=== PATIENT | female | born 1965 | race Caucasian/White ===

== ENCOUNTER → 2019-01-05 | Outpatient (CLI) | payer OTHER ==
[~2019-01-05] MED LIST: BIRTH CONTROL PO; KEPPRA 500 MG500 MG PO
== END ==
LOC: M.RAD 14:31
DX: Z12.31 Encounter for screening mammogram for malignant neoplasm of breast (principal)

== ENCOUNTER → 2020-01-29 | Outpatient (CLI) | payer OTHER | LOC: M.RAD 14:50 | PROVIDERS: ATTEND Nurse Practitioner Women's Health | DX: Z12.31 Encounter for screening mammogram for malignant neoplasm of breast (principal); N63.24 Unspecified lump in the left breast, lower inner quadrant ==

== ENCOUNTER → 2020-02-01 | Outpatient (CLI) | payer OTHER ==
[~2020-02-01] MED LIST changes: +ALLEGRA ALLERG180 MG PO; +EZETIMIBE10 MG PO; +PROAIR HFA8.5 GM INH; +ROSUVASTATIN CA40 MG PO; +TRAMADOL 50 MG50 MG PO; +VITAMIN D21250 MC1 PO
--- NOTE | 2020-02-12 10:07 | PATH ---
[address] [address] PATHOLOGY RPT PROCEDURE Name: PRICE LOERA Room: [facility]#: [id number] Admission: 02/01/20 Date of : 69 Discharge: Report #: [id number] Path Case #: [id number] [facility] Accession Number: [id number] . 01 Material submitted: . PART A: breast - LEFT BREAST BIOPSY 7:00 8CMFN. Modifiers: left, 7:00 PART B: breast - LEFT BREAST BIOPSY MASS 5:00 1CMFN. Modifiers: left, 5:00 PART C: breast - LEFT BREAST MASS 7:00 4CMFN. Modifiers: left, 7:00 . 01 Clinical history: . A. 1.74 X 1.38 X 1.03 B. 1.51 X 1.66 X 1.42 C. 1.56 X 1.67 X 1.03 MAMMOTOMOE BX/MASS . 02 Diagnosis: A. Left breast, 7:00, 8 cm from nipple, image guided core biopsy: - INFILTRATING DUCTAL ADENOCARCINOMA, LOW-GRADE, SPANNING AT LEAST 10 MM. - FOCAL DUCTAL CARCINOMA IN SITU (DCIS), NUCLEAR GRADE II, SOLID AND CRIBRIFORM TYPES. SEE COMMENT. . B. Left breast mass, 5:00, 1 cm from nipple, image guided core biopsies: - Benign breast tissue with usual ductal epithelial hyperplasia and apocrine change, negative for atypia. See comment. . C. Left breast mass, 7:00, 4 cm from nipple: - INFILTRATING DUCTAL ADENOCARCINOMA, LOW-GRADE, SPANNING AT LEAST 9 MM. - DCIS, NUCLEAR GRADE II, CRIBRIFORM TYPE WITH FOCAL NECROSIS AND CALCIFICATIONS. SEE COMMENT. . Surgical Pathology Cancer Case Summary . Protocol posting date: June 2019 . INVASIVE CARCINOMA OF THE BREAST: Biopsy . Procedure ___ Other: Image guided core biopsies . Specimen Laterality ___ Left . Tumor Site ___ Clock position: 7 o'clock ___ Distance from nipple: 8 cm . Tumor Size ___ Greatest dimension of largest invasive focus >1 mm: at least 10 [place] [address] PATHOLOGY RPT PROCEDURE Name: PRICE LOERA Room: [facility]#: [id number] Admission: 02/01/20 Date of : 69 Discharge: Report #: [id number] Path Case #: [id number] Histologic Type ___ Invasive carcinoma of no special type (ductal) . Histologic Grade ([place] Histologic Score) . Glandular (Acinar)/Tubular Differentiation ___ Score 1 (>75% of tumor area forming glandular/tubular structures) . Nuclear Pleomorphism ___ Score 2 (cells larger than normal with open vesicular nuclei, visible nucleoli, and moderate variability in both size and shape) . Mitotic Rate ___ Score 1 . Overall Grade ___ Grade 1 (scores of 3, 4, or 5) . Ductal Carcinoma In Situ (DCIS) ___ Present . Architectural Patterns ___ Cribriform ___ Solid . Nuclear Grade ___ Grade II (intermediate) . Necrosis ___ Not identified . Lymphovascular Invasion ___ Not identified . Microcalcifications ___ Not identified . Ancillary Studies . Biomarker Studies ___ Pending on A1. . Surgical Pathology Cancer Case Summary . Protocol posting date: June 2019 . INVASIVE CARCINOMA OF THE BREAST: [place] [address] PATHOLOGY RPT PROCEDURE Name: PRICE LOERA Room: [facility]#: [id number] Admission: 02/01/20 Date of : 69 Discharge: Report #: [id number] Path Case #: [id number] ___ Other : Image guided core biopsies . Specimen Laterality ___ Left ___ Not specified . Tumor Site ___ Clock position: 7 o'clock ___ Distance from nipple: 4 cm . Tumor Size ___ Greatest dimension of largest invasive focus >1 mm: at least 9 mm . Histologic Type ___ Invasive carcinoma of no special type (ductal) . Histologic Grade ([place] Histologic Score) . Glandular (Acinar)/Tubular Differentiation ___ Score 2 (10% to 75% of tumor area forming glandular/tubular structures) . Nuclear Pleomorphism ___ Score 2 (cells larger than normal with open vesicular nuclei, visible nucleoli, and moderate variability in both size and shape) . Mitotic Rate ___ Score 1 . Overall Grade ___ Grade 1 (scores of 3, 4, or 5) . Ductal Carcinoma In Situ (DCIS) ___ Present . Architectural Patterns ___ Cribriform . Nuclear Grade ___ Grade II (intermediate) . Necrosis ___ Present, focal (small foci or single cell necrosis) . Lymphovascular Invasion ___ Not identified . Microcalcifications ___ [place] [address] PATHOLOGY RPT PROCEDURE Name: PRICE LOERA Room: [facility] Elaina#: [id number] Admission: 02/01/20 Date of : 69 Discharge: Report #: [id number] Path Case #: [id number] . Ancillary Studies Biomarker Studies ___ Pending on C1 . (KRZYSZTOF:pit 02/04/2020) [facility] 02/04/2020 1205 Local . 02 Comment: In specimen A, approximately 80% of the submitted tissues are involved by invasive tumor and in specimen C, approximately 95% is involved. Breast tumor profile studies are pending on A1 and C1 and will be the subject of an addendum report. Specimens A, B, and C reviewed with Dr. José Roblero who agrees with the diagnoses. Olinda (acting [facility] Breast Navigator) notified at approximately 1430 on 02/04/2020. (KRZYSZTOF:ángela 02/04/2020) . 02 Addendum: . Special studies report received from [facility], [address] [place] [address], [address], [place], [address], on case [id number], labeled with their number [id number], dated 02/06/2020. . Breast/Prognostic Marker Analysis . Specimen Site: Lt Breast,7:00, 8 cm FN, Breast Carcinoma (Biopsy) Specimen ID #: [id number] . ER (Estrogen Receptor) Present/Positive Percent: 95.00% Analysis: Manual Comments: Staining intensity: Moderate to strong . CA (Progesterone Receptor) Present/Positive Percent: 10.00% Analysis: Manual Comments: Staining intensity: Weak to moderate . HER2 Equivocal Score: 2+ Analysis: Manual Comments: Additional studies: Reflex HER2 by FISH will be reported separately. . Ki-67 [place] [address] PATHOLOGY RPT PROCEDURE Name: PRICE LOERA Room: [facility] Elaina#: [id number] Admission: 02/01/20 Date of : 69 Discharge: Report #: [id number] Path Case #: [id number] Percent: 2.00% Analysis: Manual . . Specimen Site: Lt Breast Mass,7:00, 4 cm FN, Breast Carcinoma (Biopsy) Specimen ID #: [id number] . ER (Estrogen Receptor) Present/Positive Percent: 90.00% Analysis: Manual Comments: Staining intensity: Moderate to strong . CA (Progesterone Receptor) Present/Positive Percent: 10.00% Analysis: Manual Comments: Staining intensity: Moderate to strong . HER2 Not Over-Expressed Score: 1+ Analysis: Manual . Ki-67 Low Proliferation Percent: 10.00% Analysis: Manual . Time to Fixation (Cold Ischemic Time): A) Less than 1 minute C) Immediate Duration of Fixation: A) 12 hours, 36 minute C)12 hours, 23 minutes Type of Fixative: 10% Neutral Buffered Formalin . Comments: ER/PgR testing at [facility]. is performed in compliance with the ASCO/CAP Clinical Practice Guidelines. If the result for ER is less than 1% it is reported as Negative; if the ER result is 1-10% it is reported as Low Positive; if the ER result is greater than 10% it is reported as Positive. If the result for PgR is less than 1% it is reported as Negative; if the PgR result is equal to or greater than 1%, it is reported as Positive. . REFERENCE: Praveena KH, Ewa LOERAH, Farhan M, et al. Estrogen and progesterone receptor testing in breast cancer. ASCO/CAP guideline update. Arch Pathol Lab Med. 2020; 144:545-563. . Whole slide image capture is performed using Interface21 (NUOFFER) platform. Image analysis, if ordered, is performed using [place] [address] PATHOLOGY RPT PROCEDURE Name: PRICE LOERA [id number] Ad[facility]: 02/01/20 Date of : 69 Discharge: Report #: [id number] Path Case #: [id number] . at [facility]. Kia Moya M.D. Pathologist . . Methodology The HER2 Receptor protein expression is analyzed using the [place] HER2 rabbit monoclonal antibody (clone [id number]). This assay is used for diagnostic determination of the HER2 protein over-expression in paraffin embedded, formalin fixed breast cancer tissue on the [place] Benchmark. The specimen is processed using a secondary antibody-HRP conjugate detection system. The membrane staining of the tumor is determined either by manual score or image analysis. This antibody is intended for in vitro diagnostic use. The score is reported as 0, 1+, 2+, or 3+. This test is used for clinical purposes. . A rabbit monoclonal antibody (clone SP1) that recognized the Estrogen Receptor is used to perform immunohistochemistry on routinely fixed (formalin) paraffin embedded tissue on the [place] Benchmark. The specimen is processed using a secondary antibody-HRP conjugate detection system. The percentage of stained tumor nuclei is determined either manually or by image analysis. This test is intended for in vitro diagnostic use. This test is used for clinical purposes. . A rabbit monoclonal antibody (clone 1E2) that recognized the Progesterone Receptor is used to perform immunohistochemistry on routinely fixed (formalin) paraffin embedded tissue on the [place] Benchmark. The specimen is processed using a secondary antibody-HRP conjugate detection system. The percentage of stained tumor nuclei is determined either manually or by image analysis. This test is intended for in vitro diagnostic use. This test is used for clinical purposes. . A rabbit monoclonal antibody (clone 30-9) that recognized Ki67 is used to perform immunohistochemistry on routinely fixed (formalin) paraffin embedded tissue on the [place] Benchmark. The specimen is processed using a secondary antibody-HRP conjugate detection system. The percentage of stained tumor nuclei is determined either manually or by image analysis. This test is intended for in vitro diagnostic use. This test is used for clinical purposes. . Intended Use: This antibody is intended for in vitro diagnostic (IVD) use. HER2 (4B5) is a rabbit monoclonal antibody intended for the semi-quantitative detection of HER2 antigen in sections of formalin-fixed, paraffin embedded normal and neoplastic tissue. . This antibody is intended for in vitro diagnostic (IV[place]) [place] [address] PATHOLOGY RPT PROCEDURE Name: PRICE LOERA Room: [facility]#: [id number] Admission: 02/01/20 Date of : 69 Discharge: Report #: [id number] Path Case #: [id number] Receptor (ER) (SP1) is a rabbit monoclonal antibody (IgG) that is intended for the qualitative detection of estrogen receptor (ER) antigen in sections of formalin-fixed, paraffin-embedded tissue. ER is a rabbit monoclonal antibody that recognizes human estrogen receptor alpha. . This antibody is intended for in vitro diagnostic (IVD) use. Progesterone Receptor (CA) (1E2) is a rabbit monoclonal antibody (IgG) that is intended for the qualitative detection of progesterone receptor (CA) antigen in sections of formalin fixed, paraffin embedded tissue. CA is a rabbit monoclonal antibody that recognizes the A and B forms of the human progesterone receptor. . This antibody is intended for in vitro diagnostic (IVD) use. Ki-67 (30-9) is a rabbit monoclonal antibody (IgG) directed against C-terminal portion of Ki-67 antigen. Staining for Ki-67 can be used to aid in assessing the proliferative activity of normal and neoplastic tissue. Ki-67 is a nuclear protein expressed in proliferating cells. During the cell cycle, the Ki-67 antigen is present in the G1, S, G2 and M phase but is absent in the G0 (quiescent phase). . . Disclaimer: This Test was performed by [employer]. at [address] [address], [place], [address]. . [facility] is a business unit of [employer]. a wholly-owned subsidiary of [employer]. . This assay has not been validated on decalcified tissues. Results should be interpreted with caution if this specimen was decalcified given the likelihood of false negativity on decalcified specimens. . Any image(s) that accompany this report is/are a cash application representative image(s) only and should not be used to render a diagnosis. . This interpretation is contingent on the specimen and the clinical information received. . For any special tests/stains performed, known positive cells or tissues are tested with each marker and examined to ensure positivity. Positive and negative internal controls, if present, react appropriately. . This analysis is an adjunct to the evaluation of the referring physician and does not represent a final diagnosis. . The immunohistochemistry tests performed at [facility]. were validated on tissue fixed in 10% neutral buffered formalin. The performance characteristics of the tests [place] [address] PATHOLOGY RPT PROCEDURE Name: PRICE LOERA Room: [facility] MARISSA Delaney#: [id number] Admission: 02/01/20 Date of : 69 Discharge: Report #: [id number] Path Case #: [id number] processed in other fixatives is not known. . HER2 testing at [facility] is performed in compliance with the 2018 updated ASCO/CAP Clinical Practice Guideline Focused Update. If the result is EQUIVOCAL (2+), it must be confirmed by an alternative assay such as FISH or Dual ROSENDO. REF: Mone GARCIA, MALU Mcneil et al: Human Epidermal Growth Factor Receptor 2 Testing in Breast Cancer: ASCO/CAP Clinical Practice Guideline Focused Update. J Clin Oncol 36:0124-3175, 2018. . HER2 and ER/CA ASCO/CAP guidelines require fixation in neutral buffered formalin for a minimum of 6 and a maximum of 72 hours. Fixation times less than 6 hours may not adequately preserve cell proteins. Fixation times longer than 72 hours may cause excess cross-linking of proteins reducing the antigen available for staining. Either scenario can cause reduced staining; hence false negative results are possible and should be considered for these situations if the HER2 IHC score is less than 3+ or ER or CA is negative (no staining or <1% positive). It is recommended that specimens fixed longer than 72 hours with HER2 IHC scores less than 3+ be confirmed by HER2 FISH or Dual ROSENDO. The time from biopsy/excision to fixation in formalin (cold ischemic time) must be less than 1 hour. Time to fixation (cold ischemic time) greater than 1 hour should be interpreted with caution. HER2 testing, mainly HER2 by FISH, is particularly vulnerable since excessive cold ischemic time results in preferential loss of HER2 probe signals that may lead to false negative results. . SCORE STAINING PATTERN IN TUMOR CELLS INTERPRETATION RESULTS 0 No staining observed or incomplete, faint membrane staining in less than or equal to 10% of tumor cells. Negative 1+ Incomplete, faint membrane staining in greater than 10% of tumor cells. Negative 2+ Weak to moderate complete membrane staining observed in greater than 10% of tumor cells. Equivocal* *Must be confirmed by alternative assay (IHC/FISH/Dual ROSENDO) 3+ Intense, complete membrane staining in greater than 10% of tumor cells. Positive . A complete copy of the report is on file. . Professional and Technical services performed by [employer]. at [facility] [address], [address], [place] [address]. [place] [address] PATHOLOGY RPT PROCEDURE Name: PRICE LOERA Room: [facility]#: [id number] Admission: 02/01/20 Date of : 69 Discharge: Report #: [id number] Path Case #: [id number] (KRZYSZTOF:[facility] 02/07/2020) [facility]/02/07/2020 Addendum Electronically Signed by Jakob Serna MD, Pathologist Addendum #2: Special studies report received from [facility], [address] [place] [address], [address], [place], [address], on case [id number], labeled with their number [id number], dated 02/11/2020. . Fluorescence in situ Hybridization (FISH) Report HER2/LINDA-17 Dual-Probe (Breast Cancer) . Result: Negative/Not Amplified HER2/LINDA-17 Ratio: 1.7 Avg number of HER2 Signals/Nucleus: 3.4 . Indication for Study: Breast Carcinoma . Specimen Site/Type: Left Breast, 7:00, 8 cm FN (Biopsy) . Fixative: 10% Neutral Buffered Formalin . Time to Fixation: Less than 1 minute . Duration of Fixation: 12 hours and 36 minutes . HER2 FISH ANALYSIS Number of tumor cells counted: 20 Number of observers: 2 Avg number of HER2 Signals/Nucleus: 3.4 Avg number of LINDA-17 Signals/Nucleus: 2.0 Ratio of average HER2/LINDA-17: 1.7 . See report [id number] for further information. . Reviewed and electronically signed by Kia Moya M.D. on 02/11/2020 at [facility]. Kia Moya M.D. . . Methodology: A FDA approved DAKO HER2 IQFISH pharmDX (HER2/LINDA-17 DNA Probe Kit) was used for the assessment of HER2 gene amplification status. The FISH analysis was performed on areas of invasive tumor cells that were defined by a pathologist from a corresponding H and E slide. A minimum of twenty invasive tumor nuclei were analyzed by two technologists. For each nucleus, the number of HER2 signals and the number of centromere 17 (LINDA-17) signals were recorded. Enumeration results are reported as a ratio of the total HER2 hybridization signals to LINDA-17 hybridization signals. An average number of HER2 signals/nucleus and an average number [facility] [address] [place] [address] PATHOLOGY RPT PROCEDURE Name: PRICE LOERA Room: [facility]#: [id number] Admission: 02/01/20 Date of : 69 Discharge: Report #: [id number] Path Case #: [id number] of centromere 17 signals/nucleus were also recorded. If the HER2/LINDA-17 ratio is >/= 2, the HER2 gene status is Amplified/Positive. If the HER2/LINDA-17 ratio is <2, the HER2 gene status is Non-Amplified/Negative. If results are at or near the cut off (1.8-2.2), an additional 20 nuclei are counted and the ratio for 40 nuclei is recalculated. A HER2/LINDA-17 ratio of 1.8-2.2 should be interpreted with caution. The HER2 FISH results are reported using the 2018 ASCO/CAP guidelines. . ASCO/CAP 2018 SCORING CRITERIA GROUP 1 HER2/LINDA-17 ratio >/= 2.0 HER2 signals/cell >/= 4.0 FISH Positive . GROUP 2 HER2/LINDA-17 ratio >/= 2.0 HER2 signals/cell < 4.0 Additional work-up required (see comments) . GROUP 3 HER2/LINDA-17 ratio < 2.0 HER2 signals/cell >/= 6.0 Additional work-up required (see comments) . GROUP 4 HER2/LINDA-17 ratio < 2.0 HER2 signals/cell >/= 4.0 AND < 6.0 Additional work-up required (see comments) . GROUP 5 HER2/LINDA-17 ratio < 2.0 HER2 signals/cell < 4.0 FISH Negative . Specimen handling: Tissue samples should be preserved in 10% neutral buffered formalin for 18-24 hours per FDA approved DAKO HER2 IQFISH pharmDX. Extended fixation time might increase the incubation time required for Pepsin digestion. ASCO/CAP guidelines requires fixation for a minimum of 6 and a maximum of 72 hours. The time from biopsy/excision to fixation in formalin (cold ischemic time) must be less than an hour. Time to fixation (cold ischemic time) greater than 1 hour should be interpreted with caution. HER2 testing, mainly HER2 by FISH, is particularly vulnerable since excessive cold ischemic time results in preferential loss of HER2 probe signals that may lead to false negative results. . Intended Use: HER2 IQFISH pharmDX is indicated as an aid in the assessment of breast cancer patients for whom Herceptin (Trastuzumab), PERJETATM (pertuzumab) [place] [address] PATHOLOGY RPT PROCEDURE Name: PRICE LOERA Room: [facility]#: [id number] Admission: 02/01/20 Date of : 69 Discharge: Report #: [id number] Path Case #: [id number] or KADCYLATM (ado-trastuzumab emtansine) treatment is being considered. Results from HER2 IQFISH pharmDX are also used as an adjunct to the clinicopathologic information currently used for estimating prognosis in stage II, node-positive breast cancer patients. . Reference: Mone GARCIA, MALU Mcneil et al: Human Epidermal Growth Factor Receptor 2 Testing in Breast Cancer: ASCO/CAP Clinical Practice Guideline Focused Update. J Clin Oncol 36:8631-9461, 2018. . DAKO kit: Histology FISH Accessory kit code [id number] . Disclaimer(s): This assay has not been validated on decalcified tissues. Results should be interpreted with caution if this specimen was decalcified given the likelihood of false negativity on decalcified specimens. . Any image(s) that accompany this report is/are a cash application representative image(s) only and should not be used to render a diagnosis. . Performing Labs: This Test was performed at [facility]. at [facility], [address]. [facility] is a business unit of [employer] a wholly-owned subsidiary of [employer]. . A copy of the complete report is on file. Professional services performed by [employer]. at [address], [place] [address]. Technical services performed by [employer]. at [address], [place] [address]. . (KRZYSZTOF:amj 02/12/2020) . AZJ/02/12/2020 Addendum Electronically Signed by Jakob Serna MD, Pathologist . 02 Electronically signed: . Jakob Serna MD, Pathologist NPI- [id number] . 01 Gross description: . A. The specimen is received in formalin, labeled "Price Loera, left breast biopsy 7:00 8 cm from nipple". Received are multiple needle cores of fibrofatty tissue measuring 2.0 x 0.8 x 0.2 cm in aggregate dimensions. The specimen is submitted entirely in cassettes A1 through A3. The cold ischemic time is less than 1 minute. The total formalin fixation time is 12 hours and 36 [place] [address] PATHOLOGY RPT PROCEDURE Name: PRICE LOERA Room: [facility]#: [id number] Admission: 02/01/20 Date of : 69 Discharge: Report #: [id number] Path Case #: [id number] . B. The specimen is received in formalin, labeled "Price Loera, left breast biopsy 5:00 1 cm from nipple". Received are multiple needle cores of fibrofatty tissue measuring 1.5 x 0.8 x 0.2 cm in aggregate dimensions. The specimen is submitted entirely in cassettes B1 through B3. The cold ischemic time is less than 1 minute. The total formalin fixation time is 12 hours and 49 minutes. . C. The specimen is received in formalin, labeled "Price Loera, left breast biopsy 7:00 4 cm from nipple". Received are multiple needle cores of fibrofatty tissue measuring 1.5 x 0.8 x 0.2 cm in aggregate dimensions. The specimen is submitted entirely in cassettes C1 through C3. The cold ischemic time is less than 1 minute. The total formalin fixation time is 12 hours and 23 minutes. ([facility]; 02/01/2020) QAC/QAC 02/04/2020 1147 Local . 02 Pathologist provided ICD-10: C50.912, D05.12, N62 . 02 CPT . 081560, 188033, 936450 Specimen Comment: A courtesy copy of this report has been sent to [phone], [facility]-351- Specimen Comment: [phone], , Specimen Comment: Report sent to ,DR SAMPSON,DR HOPPER / DR BARLOW Performed at: [address], [place] [address] MD Mehrdad Ruby MD Phone: [phone] Performed at: 02 [facility] [address], [place], [place] [address] MD Jakob Serna MD Phone: [phone]
== END ==
LOC: M.ULTRA 08:01
PROVIDERS: ATTEND Nurse Practitioner Women's Health
DX: C50.912 Malignant neoplasm of unspecified site of left female breast (principal); R92.1 Mammographic calcification found on diagnostic imaging of breast; N62 Hypertrophy of breast; N60.82 Other benign mammary dysplasias of left breast; Z98.890 Other specified postprocedural states; Z79.899 Other long term (current) drug therapy; Z88.6 Allergy status to analgesic agent

== ENCOUNTER → 2020-02-11 | Outpatient (CLI) | payer OTHER ==
[~2020-02-11] MED LIST changes: -ALLEGRA ALLERG180 MG PO; -EZETIMIBE10 MG PO; -PROAIR HFA8.5 GM INH; -ROSUVASTATIN CA40 MG PO; -TRAMADOL 50 MG50 MG PO; -VITAMIN D21250 MC1 PO
== END ==
LOC: M.MRI 14:24
PROVIDERS: ATTEND Nurse Practitioner Women's Health
DX: C50.019 Malignant neoplasm of nipple and areola, unspecified female breast (principal); N60.01 Solitary cyst of right breast

== ENCOUNTER → 2020-03-03 | Outpatient (CLI) | payer OTHER ==
[~2020-03-03] MED LIST changes: +ALLEGRA ALLERG180 MG PO; +EZETIMIBE10 MG PO; +PROAIR HFA8.5 GM INH; +ROSUVASTATIN CA40 MG PO; +VITAMIN D21250 MC1 PO
== END ==
LOC: M.LAB 08:34
PROVIDERS: ATTEND Surgery
DX: Z01.812 Encounter for preprocedural laboratory examination (principal); Z20.828 Contact with and (suspected) exposure to other viral communicable diseases; C50.912 Malignant neoplasm of unspecified site of left female breast

== ENCOUNTER → 2020-03-04 | Outpatient (CLI) | payer OTHER ==
[~2020-03-04] MED LIST changes: +TRAMADOL 50 MG50 MG PO
== END ==
LOC: M.ULTRA 08:25
PROVIDERS: ATTEND Surgery
DX: R92.8 Other abnormal and inconclusive findings on diagnostic imaging of breast (principal); C50.212 Malignant neoplasm of upper-inner quadrant of left female breast; Z17.0 Estrogen receptor positive status [ER+]; Z79.899 Other long term (current) drug therapy; Z98.890 Other specified postprocedural states

== ENCOUNTER → 2020-03-06 | Day surgery (SDC) | payer OTHER ==
--- NOTE | 2020-03-06 12:47 | EKG ---
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 Automatic: : 1965 Requested By: Theresa Vivar Order Number: [id number] Reading MD: Ty Velazquez Measurements Intervals [place] Rate: 91 P: 35 AR: 145 QRS: -2 QRSD: 88 T: 22 QT: 356 QTc: 439 Interpretive Statements Sinus rhythm Low voltage, precordial leads RSR' in V1 or V2, right VCD or RVH Compared to ECG 11/01/2014 17:57:41 Low QRS voltage now present RSR' in V1 or V2 now present Sinus tachycardia no longer present T-wave abnormality no longer present Electronically Signed On 03-06-2020 12:47:19 CDT by Ty Velazquez [email or web address] <ELECTRONICALLY SIGNED> By: Ty Velazquez MD, [facility] 03/06/20 1247 3 3 Ty Velazquez MD, [facility] /EPI
--- NOTE | 2020-03-08 09:02 | OP ---
[address] [address] OPERATIVE REPORT Name: KALEY CRAWLEY Room: [facility]#: [id number] Admission: 03/06/20 Attend Phys: Theresa iVvar DO Discharge: Date of : 69 Report #: [id number] THIS REPORT FOR: //name// cc: Graham Ernandez Ghaison F. DO ~ CC: Theresa Ernandez DICTATED BY: Rigo Hendricks DO DATE OF SERVICE: 03/06/2020 PRIMARY CARE PHYSICIAN: Graham Ernandez DO PREOPERATIVE DIAGNOSIS: Left breast cancer. POSTOPERATIVE DIAGNOSIS: Left breast cancer. SURGEON: Theresa Vivar DO CO-SURGEON: Rigo Hendricks, PGY5 DENITRATOR OPERATOR: MS Deshaun3 OPERATION PERFORMED: Left breast lumpectomy with seed localization, BioZorb implant placement and left superficial sentinel lymph node dissection. ANESTHESIA: General, local. ESTIMATED BLOOD LOSS: 5 mL. SPECIMEN: Left breast lumpectomy, short stitch superior, long stitch lateral and left superficial axillary lymph node. COMPLICATIONS: None. INDICATIONS: The patient is a 54-year-old female with biopsy-proven left breast infiltrating ductal carcinoma. She underwent preoperative biopsy and clip placement followed by a preoperative RF seed placement that bracketed the lesion in a medial and lateral orientation. She was informed of the risks and benefits of lumpectomy as well as sentinel lymph node biopsy and proceeded with surgery. TECHNIQUE: After informed consent was obtained, the patient was brought to the operating room and placed in supine position. SCDs were on and running. Preoperative antibiotics were delivered. General anesthesia was administered with an LMA. The patient was prepped and draped in the usual sterile fashion. [address] [address] OPERATIVE REPORT Name: KALEY CRAWLEY Room: [facility]#: [id number] Admission: 03/06/20 Attend Phys: Theresa Vivar DO Discharge: Date of : 69 Report #: [id number] A surgical pause was held to confirm proper patient and procedure. Prior to prepping and draping 2 mL aliquots of isosulfan blue were injected at the cardinal points of the left nipple. The hologic probe was used to identify the 2 individual RF seeds and both serial numbers were identified. These were marked on the skin and the curvilinear incision was made between the 2 brackets. The planned incision site was injected with 0.5% Marcaine. A 15 blade was used to create a curvilinear incision approximately 5 cm in length directly over the bracketed mass. The cautery was used through the subcutaneous tissue until the breast tissue was identified. Using the hologic probe to guide dissection, the lateral tag was first dissected, obtaining a lateral margin wide to the RFID tag. This was carried around superiorly and inferiorly. The medial aspect was then developed in a similar fashion with care to include the RFID tag within the specimen once circumferentially around the deep margin was excised, which was at muscle fascia for the lateral portion and slightly more superficial at the medial aspect. Once the specimen was completely transected, the probe was used to confirm that both seeds were individually within the specimen. The specimen was placed within a TransPak container and sent to Radiology. Mammogram confirmed both clips and both tags within the specimen. This was then placed within formalin for pathology. Attention was then turned towards the axilla. The Neoprobe was used to identify the area of max uptake at the nipple, which was 56,000 and then the area of max uptake in the axilla for incision planning. A 0.5% Marcaine was injected at the planned incision site. A 4-cm incision was used with a 15 blade. Dissection was carried through the subcutaneous tissue using cautery. Using the Neoprobe to guide dissection, blunt dissection with a Tanvi was used to identify the blue lymphatics and these were traced until an area of large uptake with the Neoprobe was identified. The tissue was grasped with an Allis and retracted out from the axilla. Blunt dissection was used to circumferentially dissect out a blue and hot lymph node. Cautery was used to transect the remaining attachments. Once completely detached, the Neoprobe was used to inspect the specimen and the uptake of the specimen was 260. There was no remaining uptake in the axilla. The specimen was handed off for permanent. The cavity was inspected for hemostasis. FloSeal was then injected into the cavity. This was closed in layered fashion using 3-0 Vicryl and 4-0 Monocryl. The lumpectomy incision was closed in layered fashion after placement of a 2 x 3 cm BioZorb. This was secured in place using 3-0 Vicryl and the wound was closed in a layered fashion using 3-0 Vicryl and 4-0 Monocryl. The remaining 0.5% Marcaine was injected at both incisions. Wounds were cleansed and dressed with Dermabond. All counts were correct. The patient was emerged from anesthesia and transferred to the PACU in stable condition. <ELECTRONICALLY SIGNED> By: Theresa Vivar DO 03/08/20 0902 1223 1259Theresa Vivar DO /bonnie
--- NOTE | 2020-03-11 17:06 | PATH ---
[address] [address] PATHOLOGY RPT PROCEDURE Name: KALEY LOERA Room: [facility].#: [id number] Admission: 03/06/20 Date of : 69 Discharge: Report #: [id number] Path Case #: [id number] [facility] Accession Number: [id number] . 01 Material submitted: . PART A: breast - LEFT BREAST MASS SHORT SUPERIOR LONG LATERAL TO MAMMOGRAPHY FOR TAG CHECK. Modifiers: left PART B: lymph node - LEFT SENTINEL LYMPH NODE. Modifiers: left . 01 Clinical history: . LEFT BREAST MALIGNANT NEOPLASM SPECIMEN RE-SCANNED TO INCLUDE SECOND TAG . 02 Diagnosis: A. Left breast mass: - TWO FOCI OF DUCTAL ADENOCARCINOMA, LOW GRADE, BY A DISTANCE OF 1.3 CM, WITH: . - FIRST MASS MEASURING 23 X 21 X 16 MM (ASSOCIATED WITH BIOPSY CLIP AND LOCALIZATION SEED), WITH INVOLVEMENT OF ANTERIOR MARGIN (NEAR INFERIOR) FOR 4 MM SPAN. . - SECOND MASS MEASURING 24 X 18 X 13 MM (ASSOCIATED WITH LOCALIZATION SEED) WITH FOCAL MICROPAPILLARY FEATURES, WITH ALL MARGINS FREE OF INVOLVEMENT AND CLOSEST (POSTERIOR) LOCATED 6 MM AWAY. . - EXTENSIVE DUCTAL CARCINOMA IN SITU (DCIS), NUCLEAR GRADE III, [place], SOLID AND CRIBRIFORM TYPES, SPANNING AN ESTIMATED 60 MM, WITH ALL SURGICAL MARGINS FREE OF INVOLVEMENT AND CLOSEST (LATERAL NEAR ANTERIOR) LOCATED 1 MM AWAY. SEE COMMENT. . B. Left sentinel lymph node: - One benign lymph node (0/1). See comment. (KRZYSZTOF:luis enrique; 03/11/2020) . . Surgical Pathology Cancer Case Summary . Protocol posting date: June 2019 . INVASIVE CARCINOMA OF THE BREAST: Resection . Procedure ___ Excision (less than total mastectomy) . Specimen Laterality ___ Left . + [place] [address] PATHOLOGY RPT PROCEDURE Name: KALEY LOERA Room: [facility]#: [id number] Admission: 03/06/20 Date of : 69 Discharge: Report #: [id number] Path Case #: [id number] + ___ Clock position: 7 o'clock, see comment. + ___ Distance from nipple: 4 cm and 8 cm from nipple, see comment. . Tumor Size ___ Greatest dimension of largest invasive focus >1 mm: 24 mm . Histologic Type ___ Invasive carcinoma of no special type (ductal) . Histologic Grade ([place] Histologic Score) . Glandular (Acinar)/Tubular Differentiation ___ Score 1 (>75% of tumor area forming glandular/tubular structures) . Nuclear Pleomorphism ___ Score 2 (cells larger than normal with open vesicular nuclei, visible nucleoli, and moderate variability in both size and shape) . Mitotic Rate ___ Score 1 . Overall Grade ___ Grade 1 (scores of 3, 4, or 5) . + Tumor Focality + ___ Multiple foci of invasive carcinoma + ___ Number of foci: 2 + Sizes of individual foci: 24 mm and 23 mm . Ductal Carcinoma In Situ (DCIS) ___ Present + ___ Positive for extensive intraductal component (EIC) . + Size (Extent) of DCIS + Estimated size (extent) of DCIS is at least 60 mm . + Architectural Patterns + ___ [place] + ___ Cribriform + ___ Solid . + Nuclear Grade + ___ Grade III (high) . + Necrosis + ___ Present, central (expansive "comedo" necrosis) . + Lobular Carcinoma In Situ (LCIS) + ___ [place] [address] PATHOLOGY RPT PROCEDURE Name: KALEY LOERA Room: [facility]#: [id number] Admission: 03/06/20 Date of : 69 Discharge: Report #: [id number] Path Case #: [id number] . Tumor Extension Skin ___ Skin is not present . Margins . Invasive Carcinoma Margins . ___ Positive for invasive carcinoma: . ___ Anterior (near inferior) + Extent: 4 mm . DCIS Margins ___ Uninvolved by DCIS Distance from closest margin: 1 mm Specify closest margin: Lateral near anterior . Regional Lymph Nodes ___ Uninvolved by tumor cells Total Number of Lymph Nodes Examined: 1 Number of [place] Nodes Examined: 1 . Treatment Effect in the Breast ___ No known presurgical therapy . + Lymphovascular Invasion + ___ Present, see comment. . + Dermal Lymphovascular Invasion + ___ No skin present . . PATHOLOGIC STAGE CLASSIFICATION (PTNM, AJCC 8TH EDITION) . TNM Descriptors ___ m (multiple foci of invasive carcinoma) . Primary Tumor (pT) ___ pT2:Tumor >20 mm but less than or equal to 50 mm in greatest dimension . Regional Lymph Nodes Modifier ___ (sn): [place] node(s) evaluated. If 6 or more nodes evaluated . Regional Lymph Nodes (pN) ___ pN0: No regional lymph node metastasis identified . + [place] [address] PATHOLOGY RPT PROCEDURE Name: KALEY LOERA Room: [facility]#: [id number] Admission: 03/06/20 Date of : 69 Discharge: Report #: [id number] Path Case #: [id number] + ___ Breast Biomarker Testing Performed on Previous Biopsy + Testing Performed on A1 . + Estrogen Receptor (ER) + ___ Positive (greater than 10% of cells demonstrate nuclear positivity) 95% . + Progesterone Receptor (PgR) + ___ Positive 90% . + HER2 (by immunohistochemistry) + ___ Equivocal (Score 2+) . + HER2 (by in situ hybridization) + ___ Negative (not amplified) . + ___ Ki-67 percentage of positive nuclei: 2% . + Testing Performed on C1 . + Estrogen Receptor (ER) + ___ Positive (greater than 10% of cells demonstrate nuclear positivity) 95% . + Progesterone Receptor (PgR) + ___ Positive 10% . + HER2 (by immunohistochemistry) + ___ Not overexpressed (Score 1+) . + ___ Ki-67 percentage of positive nuclei: 10% . + Microcalcifications (select all that apply) + ___ Present in DCIS + ___ Present in invasive carcinoma + ___ Present in non-neoplastic tissue S 03/11/2020 1627 Local . 02 Comment: Invasive tumor is seen in each of the grossly described slices 3 through 12, however, was grossly identified as two separate masses located 1.3 cm away from each other and tissue submitted in A21 contains no invasive tumor and therefore it is staged as two separate smaller foci rather than a single large mass. Both tumors generally appear histologically similar and are noted to be associated with extensive well-formed ducts but also individual malignant cells invading in cords reminiscent of lobular carcinoma. Properly controlled E-cadherin stains performed on each of blocks A3, A5, A11, and A23 all highlight the neoplastic cells supporting [address] [address] PATHOLOGY RPT PROCEDURE Name: KALEY LOERA Room: [facility] Dianne.#: [id number] Admission: 03/06/20 Date of : 69 Discharge: Report #: [id number] Path Case #: [id number] the classification in ductal in origin. Properly controlled keratin ABEL stains performed on each of A5, A11, and A23 highlight the extent of the invasive tumors. Focal micropapillary features are noted in the "second" mass (A26). Lymphovascular invasion is noted in association with both tumors (A17 and A23). The tumor is seen to frankly involve the anterior inked/cauterized margin for a 4 mm span of the anterior (near inferior) margin in A5. DCIS most closely approaches the lateral margin near anterior in A3 where the previously mentioned E-cadherin stain highlights the in situ process supporting a ductal origin (rather than lobular). The tumor sites given in the synoptic are taken from information provided in the prior image-guided biopsies ([phone] A and C). A properly controlled keratin AE1/AE3 stain performed on B1 shows no evidence of metastatic tumor. (KRZYSZTOF:luis enrique; 03/11/2020) . 02 Electronically signed: . Jakob Serna MD, Pathologist NPI- [id number] . 01 Gross description: . A. Received in formalin labeled "Kaley Loera, left breast mass" and further labeled on the requisition as "short stitch superior long lateral" is an oriented breast lumpectomy specimen weighing 54 g and measuring 8.1 cm from medial to lateral, 6.4 cm from superior to inferior, and 2.5 cm from anterior to posterior. The specimen is inked as follows: Superior-red, inferior-blue, lateral-orange, medial-yellow, anterior-green, posterior-black. The specimen is serially sectioned from lateral to medial into 17 slices. Within the specimen are two saavedra-white stellate masses. The first mass is located in slices 4-8 and measures 2.3 x 2.1 x 1.6 cm. The mass measures to the margins as follows: 2.2 cm to lateral, 5.4 cm to lateral, 1.8 cm to superior, 1.9 cm to inferior, 0.5 cm to posterior, and 0.9 cm to anterior. An omega biopsy clip is identified within the mass in slice 5. The second mass is located in slices 8-12, 1.3 cm away from the first mass. The second mass measures 2.4 x 1.8 x 1.3 cm. The mass measures to the margins as follows: 4.7 cm to lateral, 3.6 cm to medial, 1.9 cm to superior, 0.6 cm to inferior, 0.8 cm to anterior, and 0.6 cm to posterior. A possible biopsy site is identified, but a biopsy clip is not identified. The uninvolved breast parenchyma is saavedra-white and fibrous in the lateral aspect of the specimen (slices 1-8), and yellow and lobulated in the medial aspect of the specimen. Magnetic localization seeds are located in slices 2 and 15. Rn Interventional sections of the specimen are submitted as follows: A1-A2 entire slice 1, lateral margin, perpendicular sections A3-A4 entire slice 2 A5-A6 entire slice 3 A7-A9 entire slice 4 A10-A12 entire slice 5 A13-A15 entire slice 6 A16-A18 entire slice 7 [place] [address] PATHOLOGY RPT PROCEDURE Name: KALEY LOERA Room: [facility]#: [id number] Admission: 03/06/20 Date of : 69 Discharge: Report #: [id number] Path Case #: [id number] A19-A21 entire slice 8 (A20 shows remainder of mass #1 and A21 shows beginning of mass #2) A22-A23 entire slice 9 A24-A25 entire slice 10 A26-A27 entire slice 11 A28-A29 entire slice 12 A30 senior account representative slice 13 A31 senior account representative slice 17, medial margin, perpendicular sections The specimen is removed from the patient at 1121 and placed in formalin at an unspecified time on 03/06/2020. The specimen is removed from formalin at 1850 on 03/07/2020. . B. Received in formalin labeled "Kaley Loera, left sentinel lymph node" is a yellow-saavedra lymph node measuring 1.6 x 0.9 x 0.9 cm. The specimen is serially sectioned and submitted entirely in cassette B1. ([facility]; 03/07/2020) [facility] 03/11/2020 1414 Local . 02 Pathologist provided ICD-10: C50.912, D05.12 . 02 CPT . 003332, 868528, V77008, J07106 Specimen Comment: A courtesy copy of this report has been sent to [phone] Specimen Comment: Report sent to Performed at: 01 [facility] [address], [place], [place] [id number] MD José Roblero MD Phone: [phone] Performed at: [address] [facility] [address] [address] [place], [place] [id number] MD Jakob Serna MD Phone: [phone]
== END | disposition home or self-care (01) ==
LOC: M.SUR 08:25
PROVIDERS: ATTEND Surgery
DX: C50.212 Malignant neoplasm of upper-inner quadrant of left female breast (principal); Z17.0 Estrogen receptor positive status [ER+]; Z79.899 Other long term (current) drug therapy; Z98.890 Other specified postprocedural states; Z85.3 Personal history of malignant neoplasm of breast; Z88.5 Allergy status to narcotic agent; Z88.8 Allergy status to other drugs, medicaments and biological substances

== ENCOUNTER → 2020-03-28 | Day surgery (SDC) | payer OTHER ==
--- NOTE | 2020-04-02 08:30 | OP ---
[address] [address] OPERATIVE REPORT Name: KALEY CRAWLEY Room: [facility]#: [id number] Admission: 03/28/20 Attend Phys: Theresa Vivar DO Discharge: Date of : 69 Report #: [id number] THIS REPORT FOR: //name// cc: Graham Ernandez Ghaison F. DO ~ CC: Theresa Ernandez DATE OF SERVICE: 03/28/2020 PREOPERATIVE DIAGNOSIS: Left breast cancer with a previous lumpectomy, which showed a positive inferior margin. POSTOPERATIVE DIAGNOSIS: Left breast cancer with a previous lumpectomy, which showed a positive inferior margin. FINDINGS: Previous lumpectomy in the left breast inferior margin was taken all the way to the skin edge. SURGEON: Theresa Vivar DO. MULTISKILL OPERATOR: KEO Toribio and MS Romaine3. PROCEDURE PERFORMED: Left breast reexcision for margins. ANESTHESIA: LMA and local. ESTIMATED BLOOD LOSS: Zero. SPECIMENS REMOVED: Inferior margin, short stitch superior, long stitch lateral. COMPLICATIONS: None. CONDITION: Stable. DISPOSITION: PACU to home. HISTORY OF PRESENT ILLNESS: The patient very pleasant 54-year-old female who is well known to me from her previous lumpectomy. She had two large cancers in the left breast, which we did attempt to take with a single lumpectomy. Unfortunately, our inferior margin had a 2 mm area, which was positive for possible margin. The patient was then consented for reexcision for margin. Risks discussed included bleeding, infection, pain, scar formation, need for further surgery and risks of general anesthesia. The patient understood these risks [place] [address] OPERATIVE REPORT Name: KALEY CRAWLEY Room: [facility]#: [id number] Admission: 03/28/20 Attend Phys: Theresa Vivar DO Discharge: Date of : 69 Report #: [id number] DESCRIPTION OF PROCEDURE: The patient was brought to the operating room. She was laid supine on the operating room table. Sequential compression devices were placed on bilateral lower extremities. Ancef was given in the perioperative period. General LMA anesthesia was induced by Anesthesia without difficulty. The left breast was prepped and draped in standard sterile fashion. Timeout was performed to verify patient and procedure. A 10 mL of 0.5% Marcaine were injected at the site of the old incision. Old incision was reopened using a 10 blade. Cautery was used for hemostasis. The remainder of the incision was reopened using Metzenbaums. A small seroma was suctioned away. The cavity was completely opened. We turned our attention to the inferior aspect of the wound. There was only a very small amount of tissue, which remained at the inferior aspect of the cavity to the skin edge. This was gently grasped using an Allis clamp and was dissected free, essentially from the subcutaneous space using cautery. Specimen was marked in the superior and lateral direction was handed off at the inferior margin. Cavity was copiously irrigated until clear. Previously placed BioZorb was confirmed to be in good position. Wound was then closed in a layered fashion using deep and superficial stitches of 3-0 Vicryl in inverted interrupted fashion. Skin wound was closed with a running 4-0 Monocryl. A total of 20 mL of 0.5% Marcaine were used to anesthetize the wound. Wound was then cleansed and covered with Dermabond. The patient was then allowed to awaken from anesthesia, was extubated and transported to the recovery room with no further difficulties. Counts were correct x 2 at the conclusion of the case. <ELECTRONICALLY SIGNED> By: Tehresa Vivar DO 04/02/20 0830 1856 1949Chrosa Vivar DO /nt
--- NOTE | 2020-04-04 12:06 | PATH ---
[address] [address] PATHOLOGY RPT PROCEDURE Name: KALEY LOERA Room: [facility].#: [id number] Admission: 03/28/20 Date of : 69 Discharge: Report #: [id number] Path Case #: [id number] [facility] Accession Number: [id number] . 01 Material submitted: . breast - INFERIOR MARGIN, LEFT BREAST / SHORT STITCH SUPERIOR LONG STITCH LATERAL. Modifiers: left, inferior . 01 Clinical history: . MALIGNANT NEOPLASM LEFT FEMALE BREAST . 02 Diagnosis: Inferior margin left breast: - Breast tissue with changes of recent prior surgery, usual ductal epithelial hyperplasia, apocrine change and luminal calcifications with no residual, viable malignancy or atypia. See comment. LBQ 04/04/2020 0957 Local . 02 Comment: In A8, seen adjacent to the surface with changes of prior surgery are aggregates of necrotic and ischemic appearing atypical cells in association with prominent calcification. Properly controlled keratin ABEL immunohistochemical stain highlights these aggregates of cells and it suggests it to represent necrotic carcinoma and or ductal carcinoma in situ. These findings are located 3 mm away from the closest surgical margin (posterior). (KRZYSZTOF/db; 04/04/2020) . 02 Electronically signed: . Jakob Serna MD, Pathologist NPI- [id number] . 01 Gross description: . Received in formalin labeled "Kaley Loera, inferior margin left breast" and further labeled on the requisition as "short stitch superior long stitch lateral" is an oriented portion of yellow-saavedra fibroadipose tissue weighing 12 g and measuring 3.2 cm from anterior to posterior, 4.6 cm from medial to lateral, and 2.1 cm from superior to inferior. The superior aspect of the specimen is granular and fibrotic, possibly consistent with prior excision site. The specimen is inked as follows: Superior-red, inferior-blue, anterior-green, posterior-black, lateral-orange, medial-yellow. The specimen is serially sectioned from lateral to medial into 11 slices. The superior aspect of the specimen displays saavedra-white fibrotic tissue without a definitive mass. The remaining tissue is yellow and lobulated. No biopsy sites are identified. The specimen is submitted entirely as follows: A1 slice 1, lateral margin, perpendicular sections A2-A10 slices 2-10 [place] [address] PATHOLOGY RPT PROCEDURE Name: KALEY LOERA Room: [facility]#: [id number] Admission: 03/28/20 Date of : 69 Discharge: Report #: [id number] Path Case #: [id number] A11-A12 slice 11, medial margin, perpendicular sections The specimen is removed from the patient and placed in formalin at an unspecified time on 03/28/2020. The specimen is removed from formalin at 1850 on 03/30/2020. ([facility]; 03/29/2020) [facility] 03/29/2020 1107 Local . 02 Pathologist provided ICD-10: N62 . 02 CPT . 915446, E02074 Specimen Comment: A courtesy copy of this report has been sent to [phone] Specimen Comment: [phone] Specimen Comment: Report sent to / DR HOPPER Performed at: 01 [facility] [address], [place], [place] [id number] MD José Roblero MD Phone: [phone] Performed at: [address] [facility] [address], [place], [place] [id number] MD Jakob Serna MD Phone: [phone]
== END | disposition home or self-care (01) ==
LOC: M.SUR 05:33
PROVIDERS: ATTEND Surgery
DX: N60.82 Other benign mammary dysplasias of left breast (principal); N62 Hypertrophy of breast; R92.1 Mammographic calcification found on diagnostic imaging of breast; Z98.890 Other specified postprocedural states; Z79.899 Other long term (current) drug therapy; Z88.8 Allergy status to other drugs, medicaments and biological substances

== ENCOUNTER → 2021-01-28 | Outpatient (CLI) | payer OTHER | LOC: M.RAD 09:40 | PROVIDERS: ATTEND Radiology Radiation Oncology | DX: C50.312 Malignant neoplasm of lower-inner quadrant of left female breast (principal); Z17.0 Estrogen receptor positive status [ER+] ==